=== PATIENT | male | born 1980 | race Two or more races ===

== ENCOUNTER 2025-02-19 13:38 | Emergency (ER) | payer OTHER ==
[~2025-02-19] VITALS: Ht 154.9 cm; Wt 68.1 kg
--- NOTE | 2025-02-19 14:09 | ED.PDOC ---
GI ASSESSMENT HPI Comments This is a 45-year-old male with no significant past medical history brought [facility] by the EMS due to nausea and vomiting since 2 hours. Per patient, his smoked some powder (reports as Suboxone), subsequently developed nausea, vomiting and abdominal discomfort. He also reports of headache. He denied chest pain, shortness of breaths, or any bowel or bladder habit changes. He also denies of loss of consciousness or fall. Social: Denies smoking or any other drug use Chief Complaint: Abdominal Pain Time Seen by MD: 13:44 Mode of Arrival: EMS Past Medical History PAST MEDICAL HISTORY: Denies Surgical History: Denies all surgeries Constitutional: denies: chills, diaphoresis, fatigue, fever, malaise, sweats, weakness, others EENTM: denies: blurred vision, double vision, ear bleeding, ear discharge, ear drainage, ear pain, ear ringing, eye pain, eye redness, hearing loss, mouth pain, mouth swelling, nasal discharge, nose bleeding, nose congestion, nose pain, photophobia, tearing, throat pain, throat swelling, voice changes, others Respiratory: denies: cough, hemoptysis, orthopnea, SOB at rest, shortness of breath, SOB with excertion, stridor, wheezing, others Cardiovascular: denies: chest pain, dizzy spells, diaphoresis, Dyspnea on ex ertion, edema, irregular heart beat, left arm pain, lightheadedness, palpitations, PND, syncope, others Gastrointestinal: reports: abdominal pain, nausea, vomiting; denies: abdomen distended, blood streaked bowels, constipated, diarrhea, dysphagia, difficulty swallowing, hematemesis, melena, poor appetite, poor fluid intake, rectal bleeding, rectal pain, others Genitourinary: denies: burning, dysuria, flank pain, frequency, hematuria, incontinence, penile discharge, penile sore, pain, testicle pain, testicle swelling, urgency, others Neurological: reports: headache; denies: dizziness, fainting, left sided numbn ess, left sided weakness, numbness, paresthesia, pre-existing deficit, right sided numbness, right sided weakness, seizure, speech problems, tingling, tremors, weakness, others Musculoskeletal: denies: back pain, gout, joint pain, joint swelling, muscle pain, muscle stiffness, neck pain, others Integumetry: denies: bruises, change in color, change in hair/nails, dryness, laceration, lesions, lumps, rash, wounds, others Allergic/Immunocompromised: denies: Difficulty Healing, Frequent Infections, Hives, Itching, others Hematologic/Lymphatic: denies: anemia, blood clots, easy bleeding, easy bruising, swollen glands, others Endocrine: denies: excessive hunger, excessive sweating, excessive thirst, excessive urination, flushing, intolerance to cold, intolerance to heat, unexplained weight gain, unexplained weight loss, others Psychiatric: denies: anxiety, bipolar disorder, depression, hopeless, panic disorder, schizophrenia, sleepless, suicidal, others Physical Exam General Appearance: No Apparent Distress, Normal HEENT: Normal ENT Inspection, Pharynx Normal, TMs Normal Neck: Full Range of Motion, Non-Tender, Normal, Normal Inspection Respiratory: Chest Non-Tender, Lungs Clear, No Accessory Muscle Use, No Respiratory Distress, Normal Breath Sounds Cardiovascular: No Edema, No JVD, No Murmur, No Gallop, Normal Peripheral Pulses, Regular Rate/Rhythm Breast Exam: Deferred Gastrointestinal: No Organomegaly, Non Tender, No Pulsatile Mass, Normal Bowel Sounds, Soft Genitalia: Deferred Pelvic: Deferred Rectal: Deferred Extremities: No calf tenderness, Normal capillary refill, Normal inspection, Normal range of motion, Non-tender, No pedal edema Musculoskeletal : Apperance: Normal Neurologic: Alert, shredded filler machine wrapper layer II-XII nml as Tested, No Motor Deficits, Normal Affect, Normal Mood, No Sensory Deficits Cerebellar Function: Normal Reflexes: Normal Skin: Dry, Normal Color, Warm Lymphatic: No Adenopathy Was a procedure done? Was a procedure done?: No GI differential Dx Differential Diagnosis: Gastritis/PUD, Gastroenteritis Other Differential Diagnosis Intoxication Gastroenteritis X-Ray, Labs, Meds, VS Vital Signs Date Time Temp Pulse Resp B/P (MAP) Pulse Ox O2 Delivery O2 Flow Rate FiO2 02/19/25 13:45 57 02/19/25 13:39 98.1 52 18 122/72 96 98.1 Time of 1ST Reevaluation: 17:46 Reevaluation 1ST: Unchanged Patient Education/Counseling: Diagnosis, Treatment, Prognosis, Need For Follow Up Family Education/Counseling: No Family Present Comments Patient came to the hospital due to abdominal pain. Patient was vitally stable Patient was complaining of abdominal pain, nausea and vomiting. Patient was used refusing lab work and imaging. Patient was given normal saline Protonix and Zofran On subsequent checkup, patient still complaining of nausea abdominal pain Patient will be admitted for further management. SEPSIS Sepsis Screen Date sepsis recognized/suspect: Feb 19, 2025 Time Sepsis recognized/suspect: 1339 Recent Procedure: No On Antibiotic Therapy: No Respiratory Rate >20: No Heart Rate >90: No Temp<36 C (96.8 F) or >38.3 C: No SBP <90 or MAP <65 mmHG: No New Acute Mental Status Change: No Is the patient on CPAP, BIPAP,: No Physician Orders Complete Blood Count (02/19/25 14:02) Comprehensive Metabolic Panel (02/19/25 14:02) Drug Screen (02/19/25 14:02) Urinalysis (02/19/25 14:02) Blood Alcohol (02/19/25 14:02) Troponin-I Hs (02/19/25 14:02) Electrocardigram (02/19/25 14:02) Lipase (02/19/25 14:09) Vital Signs Date Time Temp Pulse Resp B/P (MAP) Pulse Ox O2 Delivery O2 Flow Rate FiO2 02/19/25 13:45 57 02/19/25 13:39 98.1 52 18 122/72 96 98.1 Departure 1 Departure Time of Disposition: 17:49 Impression: Primary Impression: Gastritis Additional Impression: Intoxication by drug Disposition: ADMITTED INPATIENT Admit to: [facility] Condition: Guarded Critical Care Note Critical Care Time?: Yes (45 min-critical care time only) Stability Stability form required: No Heart Score Heart Score: Heart Score Response (Comments) Value History N/A 0 EKG N/A 0 Age N/A 0 Risk Factors N/A 0 Troponin N/A 0 Total 0 ALBERT RODRIGUEZ RESDIENT Feb 19, 2025 14:09
[2025-02-19] MEDS: SODIUM CHLORIDE 0.9% 1,000 ML IV ONE (21:10)
[2025-02-19 21:22] LABS: Hematocrit 40.7 % (41.0-53.0); Hemoglobin 13.5 g/dL (13.5-17.5); Mean Corpuscular Hemoglobin 31.3 pg (28.0-32.0); Mean Corpuscular Volume 94.2 fL (80.0-100.0); Nucleated Red Blood Cells % 0.1 %
[2025-02-19] MEDS: PANTOPRAZOLE 40 MG/10 ML VIAL INJ IV ONE (21:28)
[2025-02-19] MEDS: ONDANSETRON HCL 4 MG/2 ML VIAL IV ONE (21:28)
[2025-02-19 21:39] LABS: Alanine Aminotransferase 19 U/L (7-40); Albumin 4.4 g/dL (3.2-4.8); Alkaline Phosphatase 80 U/L (46-116); Anion Gap 9 (5-15); BUN/Creatinine Ratio 16.5 (10.0-20.0); Blood Urea Nitrogen 14 mg/dL (9-23); Calcium 9.3 mg/dL (8.7-10.4); Carbon Dioxide 30 mmol/L (20-31); Chloride 101 mmol/L (98-107); Potassium 4.9 mmol/L (3.5-5.1); Sodium 140 mmol/L (136-145); Total Protein 7.3 g/dL (5.7-8.2)
[2025-02-19 21:40] LABS: Bilirubin, Total 0.4 mg/dL (0.2-1.0)
[2025-02-19 21:55] VITALS: BP 116/67; PULSE 63; RESP 18; TEMP 98.2; O2SAT 99
[2025-02-19 21:56] LABS: Glucose 123 mg/dL (74-106)
[2025-02-19 21:58] LABS: Lipase 39 U/L (12-53)
--- NOTE | 2025-02-22 10:44 | ECG ---
[facility] Test Date: 2025-02-19 Test Time: 13:45:31 Pat Name: CHRISSY RECINOS Department: Room: Gender: Strategy Consultant: JAMES : 1980 Requested By: ALBERT RODRIGUEZ Order Number: [id number] Reading MD: Barber Arzate Measurements Intervals [place] Rate: 57 P: 65 HI: 148 QRS: 15 QRSD: 102 T: 64 QT: 443 QTc: 432 Interpretive Statements Sinus rhythm RSR' in V1 or V2, right VCD or RVH Nonspecific T abnormalities, anterior leads Electronically Signed On 02-24-2025 9:26:07 PDT by Barber Arzate Please click the below link to view image of tracing.
== END 2025-02-19 20:04 | disposition home or self-care (01) ==
LOC: EEVIPCON 13:38 → EDBD 13:38 → ER 13:38
DX: K29.70 Gastritis, unspecified, without bleeding (principal); F19.129 Other psychoactive substance abuse with intoxication, unspecified; F17.200 Nicotine dependence, unspecified, uncomplicated
CPT/HCPCS: 36415; 80053; 80320; 83690; 84484; 85025; 93005; 96361; 96374; 96375; 99285; J2405; J2470; J7030